=== PATIENT | female | born 1990 | race African-American/Black ===

== ENCOUNTER 2018-11-03 16:04 | Emergency (ER) | payer OTHER ==
[~2018-11-03] VITALS: Ht 149.9 cm; Wt 77.1 kg
[2018-11-03 16:08] VITALS: BP 131/88
--- NOTE | 2018-11-03 16:20 | NUR ---
ED Nurse Note: AMBULATED IN TO ER DUE TO FLU-LIKE SYMPTOMS- COUGHING, CHILL, FEVER, AND C/O CHEST BURNING PAIN WHEN BREATHING X 3 DAYS. ORAL TEMP OF 98.7F
--- NOTE | 2018-11-03 17:40 | Emergency Room Report ---
History of Present Illness General Chief Complaint: Flu Like Symptoms Source: Patient (Anabel Shaw) Present Illness HPI 28 year old female presents to the emergency department complaining of cough, rhinorrhea, nasal congestion and sore throat in addition to 3 out of 10 in severity intermittent pain to the right side of the chest that is exacerbated with coughing and sometimes breathing 3 days. Patient denies pain at this time , she denies neck pain or stiffness, photophobia or ear pain. Denies fevers but reports some chills. (Anabel Shaw) Allergies: Coded Allergies: No Known Allergies (Unverified , 11/03/18) Patient History Past Medical History: see triage record Past Surgical History: none Pertinent Family History: none Last Menstrual Period: OCT 2018 Reviewed Nursing Documentation: PMH: Agreed; PSxH: Agreed (Anabel Shaw) Nursing Documentation-PMH Past Medical History: No History, Except For (Anabel Shaw) Review of Systems All Other Systems: negative except mentioned in HPI (Anabel Shaw) Physical Exam Vital Signs Date Time Temp Pulse Resp B/P (MAP) Pulse Ox O2 Delivery O2 Flow Rate FiO2 11/03/18 16:08 98.8 95 16 131/88 95 Room Air Sp02 EP Interpretation: reviewed, normal General Appearance: no apparent distress, alert, GCS 15, non-toxic Head: normocephalic, atraumatic Eyes: bilateral eye normal inspection, bilateral eye PERRL ENT: hearing grossly normal, normal voice, TMs + canals normal, uvula midline, moist mucus membranes, pharyngeal erythema Neck: full range of motion Respiratory: chest non-tender, lungs clear, normal breath sounds, no respiratory distress, no wheezing, speaking full sentences Cardiovascular #1: regular rate, rhythm, normal capillary refill Musculoskeletal: back normal, gait/station normal, normal range of motion, non- tender Neurologic: alert, oriented x3, responsive, motor strength/tone normal, sensory intact, speech normal, grossly normal Psychiatric: judgement/insight normal Skin: normal color, no rash, warm/dry, well hydrated Lymphatic: no adenopathy (Anabel Shaw) Medical Decision Making PA Attestation Dr. Avitia is my supervising Physician whom patient management has been discussed with. (Anabel Shaw) Diagnostic Impression: Primary Impression: Bronchitis ER Course 28 year old female presents to the emergency department complaining of cough, rhinorrhea, nasal congestion and sore throat in addition to 3 out of 10 in severity intermittent pain to the right side of the chest that is exacerbated with coughing and sometimes breathing 3 days. Patient denies pain at this time , she denies neck pain or stiffness, photophobia or ear pain. Denies fevers but reports some chills. Ddx considered but are not limited to URI, pneumonia, PE, strep pharyngitis, meningitis. Vital signs: Pt.is afebrile VS are WNL H&PE are most consistent with bronchitis ORDERS: -CXR- WNL ED INTERVENTIONS: None required at this time. -I do not identify an emergent condition at this time. With current presentation , pt. is stable for close outpatient follow up and conservative treatment. D/ w pt. to return promptly to ED with worsening or new symptoms.- Pt. verbalizes' understanding and agreement with proposed treatment plan.proposed treatment plan. DISCHARGE: At this time pt. is stable for d/c to home. Will provide printed patient care instructions, and any necessary prescriptions. Care plan and follow up instructions have been discussed with the patient prior to discharge. (Anabel Shaw) Chest X-Ray Diagnostic Results Chest X-Ray Diagnostic Results : Chest X-Ray Ordered: Yes # of Views/Limited/Complete: 1 View Indication: Chest Pain EP Interpretation: Yes PA Xray: Interpretation reviewed, by supervising MD, and agrees with findings. Interpretation: no consolidation, no effusion, no pneumothorax, no acute cardiopulmonary disease Impression: No acute disease Electronically Signed by: nAabel Shaw PA-C (Anabel Shaw) Chest X-Ray Diagnostic Results : Electronically Signed by: Sudheer Fatima documentation of Xray reviewed by me and is accurate, Josh Avitia MD (Josh Avitia MD) Last Vital Signs Date Time Temp Pulse Resp B/P (MAP) Pulse Ox O2 Delivery O2 Flow Rate FiO2 11/03/18 16:08 98.8 95 16 131/88 95 Room Air (Anabel Shaw) Last Vital Signs Date Time Temp Pulse Resp B/P (MAP) Pulse Ox O2 Delivery O2 Flow Rate FiO2 11/03/18 17:47 97.9 82 18 76/ 99 Room Air BP is most likely documentation of diastolic pressure. (Josh Avitia MD) Disposition: HOME, SELF-CARE Condition: Stable Scripts Lidocaine HCl 2% Viscous (Lidocaine HCl 2% Viscous) 100 Ml Solution 15 ML ORAL QID, #200 ML Prov: Anabel Shaw 11/03/18 Naproxen* (NAPROXEN*) 500 Mg Tablet.dr 500 MG ORAL TWICE A DAY for 7 Days, #14 TAB Prov: Anabel Shaw 11/03/18 Albuterol Sulfate* (ALBUTEROL SULFATE MDI*) 8.5 Gm Hfa.aer.ad 2 PUFF INH Q4H, #1 INH 0 Refills Prov: Anabel Shaw 11/03/18 Codeine/Promethazine Hcl* (PROMETHAZINE-CODEINE SYRUP*) 118 Ml Syrup 5 ML ORAL Q6H PRN for For Cough, #120 ML 0 Refills Prov: Anabel Shaw 11/03/18 Departure Forms: Return to Work Return to Work Date: Nov 06, 2018 Work Restrictions: None Other Restrictions: May return Sooner if Symptoms have resolved. Return to Full Activity: Nov 06, 2018 Patient Instructions: Acute Bronchitis, [id number] Additional Instructions: Take medications as directed. Follow up with a Primary Care Provider in 3-5 days, even if your symptoms have resolved. --Please review list of primary care clinics, if you do not already have a primary care provider Return sooner to ED if new symptoms occur, or current symptoms become worse. Do not drink alcohol, drive, or operate heavy machinery while taking Cough Syrup as this may cause drowsiness. - Please note that this Emergency Department Report was dictated using [employer] technology software, occasionally this can lead to erroneous entry secondary to interpretation by the dictation equipment. Anabel Shaw Nov 03, 2018 17:40 Josh Avitia MD Nov 04, 2018 04:39
[2018-11-03] MEDS ORDERED: PROMETHAZINE-C118 M1 ORAL (17:42)
[2018-11-03] MEDS ORDERED: LIDOCAINE VISC100 ML ORAL (17:42)
[2018-11-03] MEDS ORDERED: NAPROXEN500 M1 ORAL (17:42)
[2018-11-03] MEDS ORDERED: ALBUTEROL SULF8.5 GM INH (17:42)
[2018-11-03 17:47] VITALS: BP_SYST 76
--- NOTE | 2018-11-03 17:49 | NUR ---
ED Nurse Note: Pt cleared by health care Provider for discharge. DC instructions/prescription was given and explained to pt and verbalized understanding of teachings. All medical deviecs such as ID band removed. Pt is AAO x4, ambulatory and left with all personal belongings.
--- NOTE | 2018-11-04 10:56 | Diagnostic Imaging Report ---
Indication: Chest pain Technique: One view of the chest Comparison: none Findings: Lungs and pleural spaces are clear. Heart size is normal Impression: No acute process
== END 2018-11-03 17:47 | disposition home or self-care (01) ==
LOC: EMR 16:40
DX: J40 Bronchitis, not specified as acute or chronic (principal)
CPT/HCPCS: 71045; 99283